=== PATIENT | male | born 1990 | race Caucasian/White ===

== ENCOUNTER 2023-03-08 08:48 | Emergency (ER) | payer OTHER ==
[~2023-03-08] VITALS: Ht 175.3 cm; Wt 90.1 kg
[2023-03-08 12:05] VITALS: BP 136/82; TEMP 97.3; O2SAT 98
== END 2023-03-08 12:06 | disposition home or self-care (01) ==
LOC: M ED 08:48
DX: N50.82 Scrotal pain (principal); F17.200 Nicotine dependence, unspecified, uncomplicated